=== PATIENT | female | born 1985 | race Caucasian/White ===

== ENCOUNTER 2017-09-25 15:27 | Emergency (ER) | payer BC ==
--- NOTE | 2017-09-25 15:49 | EDM.PDOC ---
ED HPI GENERAL MEDICAL PROBLEM - General Chief Complaint: Upper Extremity Injury/Pain Stated Complaint: LEFT ARM INJURY Time Seen by Provider: 09/25/17 15:49 Source of Information: Reports: Patient History Limitations: Reports: No Limitations - History of Present Illness INITIAL COMMENTS - FREE TEXT/NARRATIVE: Kimberly is a pleasant 32yo female, presents ambulatory with to ED with complaints of left elbow pain s/p fall early this morning. She was out celebrating her birthday, was drinking alcohol and intoxicated and fell down, onto her left elbow. She is unsure of exactly how she landed. Today she has swelling and pain to her elbow, movement of the elbow causes pain. No numbness/ tingling distally. No other associated injuries from the fall. She is otherwise healthy, trying to conceive with LMP being 2-3 weeks ago or so. Onset: Sudden Duration: Day(s): (1) Location: Reports: Upper Extremity, Left Quality: Reports: Throbbing Severity: Moderate Improves with: Reports: None Worsens with: Reports: None Context: Reports: Trauma (fall onto left arm/elbow) Associated Symptoms: Reports: No Other Symptoms Left Elbow Pain Score (Numeric/FACES): 8 - Related Data Allergies Allergy/AdvReac Type Severity Reaction Status Date / Time No Known Allergies Allergy Verified 05/11/17 11:35 Home Meds: Home Meds Sertraline HCl [Zoloft] 50 mg PO DAILY 09/25/17 [History] metFORMIN [Glucophage XR] 500 mg PO BID 09/25/17 [History] Past Medical History Gastrointestinal History: Reports: Other (See Below) Other Gastrointestinal History: anal fissure repair 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 Psychiatric History: Reports: Anxiety Social & Family History - Tobacco Use Smoking Status *Q: Current Every Day Smoker Years of Tobacco use: 10 Packs/Tins Daily: 0.3 - Caffeine Use Caffeine Use: Reports: Coffee - Recreational Drug Use Recreational Drug Use: No Review of Systems - Review of Systems Review Of Systems: See Below Constitutional: Reports: No Symptoms Eyes: Reports: No Symptoms Ears: Reports: No Symptoms Nose: Reports: No Symptoms Mouth/Throat: Reports: No Symptoms Respiratory: Reports: No Symptoms Cardiovascular: Reports: No Symptoms GI/Abdominal: Reports: No Symptoms Genitourinary: Reports: No Symptoms Musculoskeletal: Reports: Arm Pain (left elbow, see HPI) Skin: Reports: No Symptoms Neurological: Reports: No Symptoms ED EXAM, GENERAL - Physical Exam Exam: See Below Exam Limited By: No Limitations General Appearance: Alert, WD/WN, No Apparent Distress Eye Exam: Bilateral Eye: EOMI, PERRL Ears: Normal External Exam, Hearing Grossly Normal Nose: Normal Inspection Throat/Mouth: Normal Inspection, Normal Lips, Normal Teeth, Normal Gums, Normal Voice, No Airway Compromise Head: Atraumatic, Normocephalic Neck: Normal Inspection, Supple Respiratory/Chest: No Respiratory Distress, Lungs Clear, Normal Breath Sounds Cardiovascular: Normal Peripheral Pulses, Regular Rate, Rhythm, No Edema, No Murmur Peripheral Pulses: 2+: Radial (L), Radial (R) Extremities: Joint Swelling (left elbow laterally is with swelling, early ecchymosis is forming over lateral aspect/radial head area. There is point tenderness near/around radial head and lateral condyle, medial condyle is with some tenderness but nothing like lateral aspect. Any amt of motion to elbow causes pain, she is unable to pronate/supinate due to pain. Distally CMS is intact. Shoulder and wrist/hand exam are WNL and without abnormality.) Neurological: Alert, Oriented, CN II-XII Intact, Normal Cognition Psychiatric: Normal Affect, Normal Mood Skin Exam: Warm, Dry, Intact Course - Vital Signs Last Recorded V/S: Last Vital Signs Temp 98.5 F 09/25/17 15:39 Pulse 95 09/25/17 15:39 Resp 20 09/25/17 15:39 BP 140/88 09/25/17 15:39 Pulse Ox 95 09/25/17 15:39 - Orders/Labs/Meds Orders: Active Orders 24 hr Category Date Time Status Elbow Min 3V Lt [CR] Stat Exams 09/25/17 15:48 Taken HCG QUALITATIVE,URINE [URCHEM] Stat Lab 09/25/17 16:10 Ordered Labs: Laboratory Tests 09/25/17 Range/Units 16:10 Urine HCG, Qual Negative (NEGATIVE) - Radiology Interpretation Free Text/Narrative:: HCG negative, proceed with xray. Xray of left elbow: without evidence of acute fracture by my review. Will await Radiologist final interp. Departure - Departure Time of Disposition: 17:09 Disposition: Home, Self-Care 01 Condition: Good Clinical Impression: Contusion of elbow, left Qualifiers: Encounter type: initial encounter Qualified Code(s): S50.02XA - Contusion of left elbow, initial encounter - Discharge Information Instructions: Elbow Contusion, [id number] Referrals: PCP,None [Primary Care Provider] - Forms: ED Department Discharge Additional Instructions: Urine test was negative today. Xray of left elbow is without findings of acute or obvious fracture. Will await Radiologist final reading and if findings differ will notify you. Recommend ibuprofen 600mg 3 times daily with food, can wear arm sling if needed for comfort however do want you to try gentle range of motion at least a few times daily. If not improving by 5-7 days recommend follow up with Primary Care for repeat xray to assure no further problems or fractures that may not have been visible on initial xray. Ice to elbow 3-4 times daily for 20 minute sessions. Return to ER if needed or for other ?'s or concerns. - My Orders Last 24 Hours: My Active Orders 09/25/17 15:48 Elbow Min 3V Lt [CR] Stat 09/25/17 16:10 HCG QUALITATIVE,URINE [URCHEM] Stat - Assessment/Plan Last 24 Hours: My Active Orders 09/25/17 15:48 Elbow Min 3V Lt [CR] Stat 09/25/17 16:10 HCG QUALITATIVE,URINE [URCHEM] Stat
[2017-09-25] MEDS ORDERED: Ketorolac 30 MG/ML SDV IM ONE (17:13)
--- NOTE | 2017-09-26 07:48 | CR ---
Left elbow: Four views of the left elbow were obtained. Comparison: No prior elbow study. Joint spaces are preserved. No joint effusion is seen. No fracture or other bony abnormality is seen. Impression: 1. No abnormality is appreciated on left elbow study. Diagnostic code #1
== END 2017-09-25 17:45 | disposition home or self-care (01) ==
LOC: JD.ED 15:27
DX: S50.02XA Contusion of left elbow, initial encounter (principal); F17.210 Nicotine dependence, cigarettes, uncomplicated; W19.XXXA Unspecified fall, initial encounter
CPT/HCPCS: 73080; 81025; 96372; 99284; J1885; 99283

== ENCOUNTER 2020-09-23 16:58 | Inpatient (IN) | payer BC ==
--- NOTE | 2020-09-23 19:55 | PCM.LDHP ---
L&D History of Present Illness - General Date of Service: 09/23/20 Admit Problem/Dx: Patient Status Order with Admit Dx/Problem 09/23/20 17:12 Patient Status [ADT] Routine Admission Diagnosis/Problem Admission Diagnosis/Problem Gestational hypertension Source of Information: Patient History Limitations: Reports: No Limitations - History of Present Illness Introduction:: Kimberly Brown (Jackie) is a 34-year-old -0-1-2 female at 37 weeks 3 days (DIANN 10/11/2020) by a 9-week ultrasound who presents for monitoring of blood pressures after she had elevated blood pressures in the office on 09/23 as well as 09/18. Her blood pressures in the office today were 146/76 and 150/80. She reports that she has had a mild headache throughout the evening and into today. It is not very strong and she has not taken anything for this headache. She denies any vision changes or epigastric pain. She has started to notice some contractions while she has been on labor and delivery. She reports that they are very irregular every 10 to 15 minutes and will last for about 30 seconds. She reports good movement. She denies any leaking of fluid or vaginal bleeding. Timing/Duration: Reports: gradual onset (Of elevated blood pressures in the clinic for the last week or so) Severity: Mild Improves with: Reports: None Worsens with: Reports: None Associated Symptoms: Denies: vaginal bleeding, vaginal discharge, vaginal fluid Present Illness Comments:: Kimberly Brown (Jackie) is a 34-year-old -0-1-2 female at 37 weeks 3 days (DIANN 10/11/2020) by a 9-week ultrasound who presents for monitoring of blood pressures and continues to have elevated blood pressures and is undergoing induction of labor due to these blood pressures. She has had an uncomplicated per her report. There were no significant concerns per the patient. Patient has been on Metformin for control of her polycystic ovarian syndrome. She started on Zoloft 50 mg daily at around 15 weeks gestational age due to increased amounts of anxiety and depression. She received Tdap vaccine on 07/22/2020. Her care has been with Dr. Bright and is complicated by: * Gestational hypertension with elevated blood pressures it 1st developed at 36 weeks and continued into 37 weeks gestational age. 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 G1: 10/01/2008, , 6 pounds, male , epidural for anesthesia G2: 08/10/2011, , 7 pounds, male infant, epidural for anesthesia G3: TAB at uncertain date G4: Current labs Blood type: O- Antibody screen: Negative First trimester hematocrit/hemoglobin: 40.8%/14.0 on 03/11/2020 Platelets: 250 on 03/11/2020 Rubella status: Equivocal Hepatitis B surface antigen: Negative RPR: Negative Hepatitis C: Negative HIV: Negative Gonorrhea: Negative Chlamydia: Negative One hour glucose tolerance test: 75 Second trimester hemoglobin: 12.4 on 07/22/2020 Platelets: 250 on 07/22/2020 GBS status: Negative - Related Data Allergies/Adverse Reactions: Allergies Allergy/AdvReac Type Severity Reaction Status Date / Time No Known Allergies Allergy Verified 09/23/20 17:11 Home Medications: Home Meds Sertraline HCl [Zoloft] 50 mg PO DAILY 09/25/17 [History] metFORMIN [Glucophage XR] 500 mg PO BID 09/25/17 [History] Pnv No.95/Ferrous Fum/Folic AC [ Tablet] 1 each PO DAILY 09/23/20 [History] Past Medical History Gastrointestinal History: Reports: Other (See Below) Other Gastrointestinal History: anal fissure repair 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 : 4 Para: 2 Psychiatric History: Reports: Anxiety, Depression - Past Surgical History Female Surgical History: Reports: Other (See Below) (colposcopy x 2) Social & Family History - Tobacco Use Tobacco Use Status *Q: Former Tobacco User Tobacco Use Within Last Twelve Months: No - Tobacco Core Measures Tobacco Use/Smoking Within Last 30 Days: No Smokeless Tobacco Use in Last 30 Days: No - Caffeine Use Caffeine Use: Reports: Coffee - Alcohol Use Alcohol Use History: No - Recreational Drug Use Recreational Drug Use: No Drug Use in Last 12 Months: No - Living Situation & Occupation Living situation: Reports: , with Spouse, with Family H&P Review of Systems - Review of Systems: Review Of Systems: See Below General: Denies: Fever, Chills, Malaise, Weakness, Fatigue HEENT: Reports: Headaches (for the last day). Denies: Eye Pain, Rhinitis, Post Nasal Drip, Sinus Congestion, Sore Throat, Visual Changes Pulmonary: Denies: Shortness of Breath, Wheezing, Pleuritic Chest Pain, Cough Cardiovascular: Denies: Chest Pain, Palpitations, Dyspnea on Exertion, Orthopnea Gastrointestinal: Denies: Abdominal Pain, Constipation, Diarrhea, Nausea, Vomiting Genitourinary: Denies: Dysuria, Frequency, Burning, Pain, Urgency Musculoskeletal: Reports: Back Pain (and hip pain of ) Skin: Denies: Rash, Lesions Psychiatric: Denies: Depression, Anxiety L&D Exam - Exam Exam: See Below - Vital Signs Vital Signs: Last Vital Signs Temp 36.8 C 09/23/20 17:20 Pulse 67 09/23/20 17:20 Resp 16 09/23/20 17:20 BP 149/73 H 09/23/20 17:20 Pulse Ox 99 09/23/20 17:20 Weight: 112.037 kg - OB Specific Contraction Duration (sec): 30-45 Contraction Frequency (min): 3-8 Contraction Intensity: Mild Movement: Active Heart Tones: Present Heart Tones per Min: 120 (+15 x 15 accelerations, no decelerations) Heart Rate (FHR) Variability: Moderate (6-25 bmp) Presentation: Vertex Estimated Weight: 7-7.5 pounds by Jesus - Ovalle Score Ovalle Score Cervix Position: Anterior Ovalle Score Consistency: Soft Ovalle Score Effacement: 31-50% (40%) Ovalle Score Dilation: 1-2 cm (1cm) Ovalle Score 's Station: -3 Ovalle Score Total: 6 - Exam General: Alert, Oriented HEENT: Conjunctiva Clear, EOMI Neck: Supple, Trachea Midline Lungs: Clear to Auscultation, Normal Respiratory Effort Cardiovascular: Regular Rate, Regular Rhythm GI/Abdominal Exam: Soft, Non-Tender, No Distention, Other (Gravid). No: Guarding, Rigid, Rebound Genitourinary: Normal external exam Skin: Warm, Dry, Intact Psychiatric: Alert, Normal Affect, Normal Mood - Patient Data Lab Results Last 24 hrs: Laboratory Results - last 24 hr 09/23/20 09/23/20 09/23/20 Range/Units 18:13 18:13 18:28 WBC 9.71 (3.98-10.04) K/mm3 RBC 3.84 L (3.98-5.22) M/mm3 Hgb 11.9 (11.2-15.7) gm/dl Hct 34.9 (34.1-44.9) % MCV 90.9 (79.4-94.8) fl MCH 31.0 (25.6-32.2) pg MCHC 34.1 (32.2-35.5) g/dl RDW Std Deviation 46.6 H (36.4-46.3) fL Plt Count 245 (182-369) K/mm3 MPV 10.5 (9.4-12.3) fl Neut % (Auto) 67.9 (34.0-71.1) % Lymph % (Auto) 23.1 (19.3-51.7) % King % (Auto) 7.9 (4.7-12.5) % Eos % (Auto) 0.8 (0.7-5.8) Baso % (Auto) 0.1 (0.1-1.2) % Neut # (Auto) 6.59 H (1.56-6.13) K/mm3 Lymph # (Auto) 2.24 (1.18-3.74) K/mm3 King # (Auto) 0.77 H (0.24-0.36) K/mm3 Eos # (Auto) 0.08 (0.04-0.36) K/mm3 Baso # (Auto) 0.01 (0.01-0.08) K/mm3 Sodium 135 L (136-145) mEq/L Potassium 3.7 (3.5-5.1) mEq/L Chloride 103 (98-107) mEq/L Carbon Dioxide 20 L (21-32) mEq/L Anion Gap 15.7 H (5-15) BUN 15 (7-18) mg/dL Creatinine 0.8 (0.55-1.02) mg/dL Est Cr Clr Drug Dosing 87.48 mL/min Estimated GFR (MDRD) > 60 (>60) mL/min BUN/Creatinine Ratio 18.8 H (14-18) Glucose 80 (70-99) mg/dL Calcium 8.8 (8.5-10.1) mg/dL Total Bilirubin 0.4 (0.2-1.0) mg/dL AST 31 (15-37) U/L ALT 56 (14-59) U/L Alkaline Phosphatase 105 (46-116) U/L Lactate Dehydrogenase 186 (81-234) U/L Total Protein 6.2 L (6.4-8.2) g/dl Albumin 2.6 L (3.4-5.0) g/dl Globulin 3.6 gm/dL Albumin/Globulin Ratio 0.7 L (1-2) Ur Random Creatinine 147.6 H (30.0-125.0) mg/dL U Random Total Protein 12.0 H (0.0-11.8) mg/dL Protein/Creatinin Ratio 81.3 (0-149) mg/g Result Diagrams: 09/23/20 18:13 09/23/20 18:13 - Problem List (1) 37 weeks gestation of SNOMED Code(s): 33838680 ICD Code: Z3A.37 - 37 WEEKS GESTATION OF Status: Acute Current Visit: Yes (2) Gestational hypertension SNOMED Code(s): 911644120 ICD Code: O13.9 - GESTATIONAL HTN W/O SIGNIFICANT PROTEINURIA, UNSP TRIMESTER Status: Acute Current Visit: Yes (3) Advanced maternal age in multigravida SNOMED Code(s): 105773128 ICD Code: O09.529 - SUPERVISION OF ELDERLY MULTIGRAVIDA, UNSPECIFIED TRIMESTER Status: Acute Current Visit: Yes (4) Rubella non-immune status, antepartum SNOMED Code(s): 445119510 ICD Code: O99.891 - OTH DISEASES AND CONDITIONS COMPLICATING ; Z28.3 - UNDERIMMUNIZATION STATUS Status: Acute Current Visit: Yes (5) Rh negative status during SNOMED Code(s): 095618102 ICD Code: O26.899 - OTH RELATED CONDITIONS, UNSPECIFIED TRIMESTER; Z67.91 - UNSPECIFIED BLOOD TYPE, RH NEGATIVE Status: Acute Current Visit: Yes (6) Anxiety SNOMED Code(s): 27349059 ICD Code: F41.9 - ANXIETY DISORDER, UNSPECIFIED Status: Acute Current Visit: Yes (7) Depression SNOMED Code(s): 74222086 ICD Code: F32.9 - MAJOR DEPRESSIVE DISORDER, SINGLE EPISODE, UNSPECIFIED Status: Acute Current Visit: Yes (8) Depression affecting SNOMED Code(s): 63905138550931 ICD Code: O99.340 - OTH MENTAL DISORDERS COMPLICATING , UNSP TRIMESTER; F32.9 - MAJOR DEPRESSIVE DISORDER, SINGLE EPISODE, UNSPECIFIED Status: Acute Current Visit: Yes (9) Polycystic ovarian syndrome SNOMED Code(s): 306090169 ICD Code: E28.2 - POLYCYSTIC OVARIAN SYNDROME Status: Acute Current Visit: Yes Problem List Initiated/Reviewed/Updated: Yes Orders Last 24hrs: Active Orders 24 hr Category Date Time Status Patient Status Manage Transfer [TRANSFER] Routine ADT 09/23/20 19:40 Ordered Patient Status [ADT] Routine ADT 09/23/20 17:12 Active Non Stress Test [RC] PER UNIT ROUTINE Care 09/23/20 17:12 Active Vital Signs [RC] PER UNIT ROUTINE Care 09/23/20 17:12 Active Regular Diet [DIET] Diet 09/23/20 Dinner Active Resuscitation Status Routine Resus Stat 09/23/20 17:12 Ordered Assessment/Plan Comment:: Ronna Brown is a 34-year-old -0-1-2 female at 37 weeks 4 days who presents with gestational hypertension and is undergoing induction of labor due to the gestational hypertension Refer to observation for elective induction of labor Start Pitocin for induction of labor Continuous monitoring Place IV and have Lactated Ringer's at 125 ml/hr May have small amounts of regular diet Activity as tolerated May have epidural as desired Plans to breast-feed after delivery Continue Zoloft 50 mg daily to control her anxiety and depression Continue Metformin 500 mg twice daily for polycystic ovarian syndrome Anticipate vaginal delivery unless otherwise indicated Vivek Olvera MD 8:02 PM 09/23/2020
[2020-09-23] MEDS ORDERED: Nalbuphine 10 MG/1 ML Vial IVPUSH PRN (20:55)
[2020-09-23] MEDS ORDERED: Sodium Chloride 0.9% 10 ML Syringe FLUSH PRN (20:55)
[2020-09-23] MEDS ORDERED: Oxytocin/Lactated Ringers 10 UNIT/1,000 ML BAG IV SCH ×2 (20:55)
[2020-09-23] MEDS ORDERED: Sertraline 50 MG Tab PO SCH (21:00)
[2020-09-23] MEDS: Lactated Ringers 1,000 ML IV SCH (21:09)
[2020-09-24] MEDS ORDERED: Bupivacaine 0.25% 10 ML SDV ONE
[2020-09-24] MEDS ORDERED: fentaNYL 100 MCG/2 ML SDV EPIDUR PRN (02:04)
[2020-09-24] MEDS ORDERED: diphenhydrAMINE 50 MG/ML SDV IVPUSH PRN (02:04)
[2020-09-24] MEDS: Lactated Ringers 1,000 ML IV SCH ×4 (02:22→05:06)
[2020-09-24] MEDS: Bupivacaine/fentaNYL/NS 100 ML Bag EPIDUR PRN ×2 (02:27→11:51)
[2020-09-24] MEDS: ePHEDrine 50 MG/ML SDV IVPUSH PRN ×2 (02:51→02:56)
--- NOTE | 2020-09-24 03:03 | PCM.PREANE ---
Preanesthetic Assessment - Procedure Proposed Procedure: Labor Epidural - Anesthesia/Transfusion/Family Hx Anesthesia History: Prior Anesthesia Without Reaction Family History of Anesthesia Reaction: No Transfusion History: No Prior Transfusion(s) - Review of Systems General: No Symptoms Pulmonary: No Symptoms Cardiovascular: Other (Gestational Hypertension) Gastrointestinal: Abdominal Pain (Contractions), Other (GERD) Neurological: No Symptoms Other: Reports: None (BMI 41), Depression, Anxiety - Physical Assessment Vital Signs: Last Vital Signs Temp 36.8 C 09/23/20 17:20 Pulse 67 09/23/20 17:20 Resp 16 09/23/20 17:20 BP 149/73 H 09/23/20 17:20 Pulse Ox 99 09/23/20 17:20 Height: 1.65 m Weight: 112.037 kg ASA Class: 3 Mental Status: Alert & Oriented x3 Airway Class: Mallampati = 2 Dentition: Reports: Normal Dentition Thyro-Mental Finger Breadths: 3 Mouth Opening Finger Breadths: 3 ROM/Head Extension: Full Lungs: Clear to Auscultation, Normal Respiratory Effort Cardiovascular: Regular Rate, Regular Rhythm - Lab Values: Laboratory Last Values WBC 9.71 K/mm3 (3.98-10.04) 09/23/20 18:13 RBC 3.84 M/mm3 (3.98-5.22) L 09/23/20 18:13 Hgb 11.9 gm/dl (11.2-15.7) 09/23/20 18:13 Hct 34.9 % (34.1-44.9) 09/23/20 18:13 MCV 90.9 fl (79.4-94.8) 09/23/20 18:13 MCH 31.0 pg (25.6-32.2) 09/23/20 18:13 MCHC 34.1 g/dl (32.2-35.5) 09/23/20 18:13 RDW Std Deviation 46.6 fL (36.4-46.3) H 09/23/20 18:13 Plt Count 245 K/mm3 (182-369) 09/23/20 18:13 MPV 10.5 fl (9.4-12.3) 09/23/20 18:13 Neut % (Auto) 67.9 % (34.0-71.1) 09/23/20 18:13 Lymph % (Auto) 23.1 % (19.3-51.7) 09/23/20 18:13 [place] % (Auto) 7.9 % (4.7-12.5) 09/23/20 18:13 Eos % (Auto) 0.8 (0.7-5.8) 09/23/20 18:13 Baso % (Auto) 0.1 % (0.1-1.2) 09/23/20 18:13 Neut # (Auto) 6.59 K/mm3 (1.56-6.13) H 09/23/20 18:13 Lymph # (Auto) 2.24 K/mm3 (1.18-3.74) 09/23/20 18:13 [place] # (Auto) 0.77 K/mm3 (0.24-0.36) H 09/23/20 18:13 Eos # (Auto) 0.08 K/mm3 (0.04-0.36) 09/23/20 18:13 Baso # (Auto) 0.01 K/mm3 (0.01-0.08) 09/23/20 18:13 Sodium 135 mEq/L (136-145) L 09/23/20 18:13 Potassium 3.7 mEq/L (3.5-5.1) 09/23/20 18:13 Chloride 103 mEq/L (98-107) 09/23/20 18:13 Carbon Dioxide 20 mEq/L (21-32) L 09/23/20 18:13 Anion Gap 15.7 (5-15) H 09/23/20 18:13 BUN 15 mg/dL (7-18) 09/23/20 18:13 Creatinine 0.8 mg/dL (0.55-1.02) 09/23/20 18:13 Est Cr Clr Drug Dosing 87.48 mL/min 09/23/20 18:13 Estimated GFR (MDRD) > 60 mL/min (>60) 09/23/20 18:13 BUN/Creatinine Ratio 18.8 (14-18) H 09/23/20 18:13 Glucose 80 mg/dL (70-99) 09/23/20 18:13 Calcium 8.8 mg/dL (8.5-10.1) 09/23/20 18:13 Total Bilirubin 0.4 mg/dL (0.2-1.0) 09/23/20 18:13 AST 31 U/L (15-37) 09/23/20 18:13 ALT 56 U/L (14-59) 09/23/20 18:13 Alkaline Phosphatase 105 U/L (46-116) 09/23/20 18:13 Lactate Dehydrogenase 186 U/L (81-234) 09/23/20 18:13 Total Protein 6.2 g/dl (6.4-8.2) L 09/23/20 18:13 Albumin 2.6 g/dl (3.4-5.0) L 09/23/20 18:13 Globulin 3.6 gm/dL 09/23/20 18:13 Albumin/Globulin Ratio 0.7 (1-2) L 09/23/20 18:13 Ur Random Creatinine 147.6 mg/dL (30.0-125.0) H 09/23/20 18:28 U Random Total Protein 12.0 mg/dL (0.0-11.8) H 09/23/20 18:28 Protein/Creatinin Ratio 81.3 mg/g (0-149) 09/23/20 18:28 SARS-CoV-2 RNA (JOSELYN) Negative (NEGATIVE) 09/23/20 20:08 - Allergies Allergies/Adverse Reactions: Allergies Allergy/AdvReac Type Severity Reaction Status Date / Time No Known Allergies Allergy Verified 09/23/20 17:11 - Acknowledgements Anesthesia Type Planned: Epidural Pt an Appropriate Candidate for the Planned Anesthesia: Yes Alternatives and Risks of Anesthesia Discussed w Pt/Guardian: Yes Pt/Guardian Understands and Agrees with Anesthesia Plan: Yes PreAnesthesia Questionnaire Gastrointestinal History: Reports: Other (See Below) Other Gastrointestinal History: anal fissure repair 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, , Spontaneous Psychiatric History: Reports: Anxiety, Depression - Past Surgical History Female Surgical History: Reports: Other (See Below) - SUBSTANCE USE Tobacco Use Status *Q: Former Tobacco User Tobacco Use Within Last Twelve Months: Cigarettes Recreational Drug Use History: No - HOME MEDS Home Medications: Home Meds Sertraline HCl [Zoloft] 50 mg PO DAILY 09/25/17 [History] metFORMIN [Glucophage XR] 500 mg PO BID 09/25/17 [History] Pnv No.95/Ferrous Fum/Folic AC [ Tablet] 1 each PO DAILY 09/23/20 [History] - CURRENT (IN HOUSE) MEDS Current Meds: Current Medications Diphenhydramine HCl (Diphenhydramine 50 Mg/Ml Sdv) 25 mg IVPUSH Q6H PRN PRN Reason: pruritis Ephedrine Sulfate (Ephedrine 50 Mg/Ml Sdv) 5 mg IVPUSH ASDIRECTED PRN PRN Reason: Hypotension Last Admin: 09/24/20 02:56 Dose: 5 mg Documented by: Fentanyl (Fentanyl 100 Mcg/2 Ml Sdv) 100 mcg EPIDUR Q3H PRN PRN Reason: Pain Last Admin: 09/24/20 02:27 Dose: 100 mcg Documented by: Fentanyl/Bupivacaine HCl (Bupivacaine/Fentanyl/Ns 100 Ml Bag) 100 ml EPIDUR ASDIRECTED PRN PRN Reason: Pain Last Admin: 09/24/20 02:27 Dose: 100 ml Documented by: Lactated Ringer's (Ringers, Lactated) 1,000 mls @ 100 mls/hr IV ASDIRECTED STELLA Last Admin: 09/24/20 02:23 Dose: 100 mls/hr Documented by: Oxytocin/Lactated Ringer's (Pitocin In Lr 10 Units/1,000 Ml) 10 unit in 1,000 mls @ 12 mls/hr IV TITRATE STELLA; Protocol Last Titration: 09/24/20 01:15 Dose: 11 munits/min, 66 mls/hr Documented by: Oxytocin/Lactated Ringer's (Pitocin In Lr 10 Units/1,000 Ml) 10 unit in 1,000 mls @ 100 mls/hr IV .CONTINUOUS STELLA Metformin HCl (Metformin 500 Mg Tab) 500 mg PO BIDMEALS STELLA Nalbuphine HCl (Nalbuphine 10 Mg/1 Ml Vial) 10 mg IVPUSH Q2H PRN PRN Reason: Pain Sertraline HCl (Sertraline 50 Mg Tab) 50 mg PO BEDTIME STELLA Last Admin: 09/23/20 21:09 Dose: 50 mg Documented by: Sodium Chloride (Sodium Chloride 0.9% 10 Ml Syringe) 10 ml FLUSH ASDIRECTED PRN PRN Reason: Keep Vein Open
[2020-09-24] MEDS ORDERED: metFORMIN 500 MG Tab PO SCH (07:00)
[2020-09-24] MEDS ORDERED: Oxytocin/Lactated Ringers 20 UNIT/1,000 ML BAG IV SCH (07:30)
--- NOTE | 2020-09-24 09:50 | PCM.PNLD ---
Labor Progress Note - VS & Meds Vital Signs: Last Vital Signs Temp 36.8 C 09/23/20 17:20 Pulse 67 09/23/20 17:20 Resp 16 09/23/20 17:20 BP 149/73 H 09/23/20 17:20 Pulse Ox 99 09/23/20 17:20 Active Medications: Current Medications Diphenhydramine HCl (Diphenhydramine 50 Mg/Ml Sdv) 25 mg IVPUSH Q6H PRN PRN Reason: pruritis Ephedrine Sulfate (Ephedrine 50 Mg/Ml Sdv) 5 mg IVPUSH ASDIRECTED PRN PRN Reason: Hypotension Last Admin: 09/24/20 02:56 Dose: 5 mg Documented by: Fentanyl (Fentanyl 100 Mcg/2 Ml Sdv) 100 mcg EPIDUR Q3H PRN PRN Reason: Pain Last Admin: 09/24/20 02:27 Dose: 100 mcg Documented by: Fentanyl/Bupivacaine HCl (Bupivacaine/Fentanyl/Ns 100 Ml Bag) 100 ml EPIDUR ASDIRECTED PRN PRN Reason: Pain Last Admin: 09/24/20 02:27 Dose: 100 ml Documented by: Lactated Ringer's (Ringers, Lactated) 1,000 mls @ 100 mls/hr IV ASDIRECTED STELLA Last Admin: 09/24/20 05:06 Dose: 100 mls/hr Documented by: Oxytocin/Lactated Ringer's (Pitocin In Lr 10 Units/1,000 Ml) 10 unit in 1,000 mls @ 12 mls/hr IV TITRATE STELLA; Protocol Last Titration: 09/24/20 07:15 Dose: 20 munits/min, 120 mls/hr Documented by: Oxytocin/Lactated Ringer's (Pitocin In Lr 10 Units/1,000 Ml) 10 unit in 1,000 mls @ 100 mls/hr IV .CONTINUOUS STELLA Oxytocin/Lactated Ringer's (Pitocin In Lr 20 Units/1,000 Ml) 20 unit in 1,000 mls @ 60 mls/hr IV TITRATE STELLA; Protocol Last Admin: 09/24/20 09:26 Dose: 60 mls/hr Documented by: Metformin HCl (Metformin 500 Mg Tab) 500 mg PO BIDMEALS STELLA Last Admin: 09/24/20 07:32 Dose: 500 mg Documented by: Nalbuphine HCl (Nalbuphine 10 Mg/1 Ml Vial) 10 mg IVPUSH Q2H PRN PRN Reason: Pain Sertraline HCl (Sertraline 50 Mg Tab) 50 mg PO BEDTIME STELLA Last Admin: 09/23/20 21:09 Dose: 50 mg Documented by: Sodium Chloride (Sodium Chloride 0.9% 10 Ml Syringe) 10 ml FLUSH ASDIRECTED PRN PRN Reason: Keep Vein Open - Uterine Contractions Contraction Frequency (min): 3-8 Contraction Duration (sec): 30-45 Contraction Intensity: Mild Uterine Resting Tone: Soft - Monitoring Heart Rate (FHR) Variability: Moderate (6-25 bmp) Accelerations: Present, 15x15 Decelerations: None Strip Review: Category I - Vaginal Exam Dilation (cm): 2 Effacement (Percent): 60 Station: -2 Cervical Position: Midposition - Labor Progress (Free Text) Labor Progress: Doing well. IUPC placed. Blood pressures mild range to normal.
--- NOTE | 2020-09-24 16:37 | PCM.SN.2 ---
- Free Text/Narrative Note: Stage I - Patient presented for induction of labor for elevated blood pressures. Pitocin induction. AROM clear fluid. IUPC placed. Progressed to complete with overall reassuring heart tones. Stage II - of viable male, weight 2890, 8/9 APGARS at 1616. Head delivered in controlled manner over intact perineum. Body and shoulders atraumatically. To maternal abdomen. Positive cry. Cord clamped and cut. Cord blood collected. Stage III - of intact placenta. 3vc. No laceration. EBL 150.
[2020-09-24] MEDS ORDERED: Witch Hazel Medicated Pads 40/Jar TOP PRN (17:30)
[2020-09-24] MEDS ORDERED: Benzocaine/Menthol 20%-0.5% Spray 56 GM Canister TOP PRN (17:30)
[2020-09-24] MEDS: Ibuprofen 600 MG Tab PO PRN (19:00)
[2020-09-25] MEDS: Ibuprofen 600 MG Tab PO PRN (00:02)
--- NOTE | 2020-09-25 08:14 | PCM.DCSUM1 ---
Discharge Summary - Hospital Course Diagnosis: Stroke: No - Discharge Data Discharge Date: 09/25/20 Discharge Disposition: Home, Self-Care 01 Condition: Good - Referral to Home Health Primary Care Physician: Christina Bright MD - Patient Summary/Data Hospital Course: Stage I - Patient presented for induction of labor for elevated blood pressures. Pitocin induction. AROM clear fluid. IUPC placed. Progressed to complete with overall reassuring heart tones. Stage II - of viable male, weight 2890, 8/9 APGARS at 1616. Head delivered in controlled manner over intact perineum. Body and shoulders atraumatically. To maternal abdomen. Positive cry. Cord clamped and cut. Cord blood collected. Stage III - of intact placenta. 3vc. No laceration. EBL 150. - Patient Instructions Diet: Usual Diet as Tolerated Activity: No Strenuous Activities Driving: May Drive Today Showering/Bathing: May Shower Wound/Incision Care: Keep Operative Site/Wound Site Clean and Dry Notify Provider of: Fever, Increased Pain, Swelling and Redness, Drainage, Nausea and/or Vomiting - Discharge Plan *PRESCRIPTION DRUG MONITORING PROGRAM REVIEWED*: No *COPY OF PRESCRIPTION DRUG MONITORING REPORT IN PATIENT DEBBIE: No Home Medications: Home Meds Sertraline HCl [Zoloft] 50 mg PO DAILY 09/25/17 [History] metFORMIN [Glucophage XR] 500 mg PO BID 09/25/17 [History] Pnv No.95/Ferrous Fum/Folic AC [ Tablet] 1 each PO DAILY 09/23/20 [History] Referrals: Christina Bright MD [Primary Care Provider] - (2 weeks) - Discharge Summary/Plan Comment DC Time >30 min.: No - General Info Date of Service: 09/25/20 Functional Status: Reports: Pain Controlled - Review of Systems General: Reports: No Symptoms HEENT: Reports: No Symptoms Pulmonary: Reports: No Symptoms Cardiovascular: Reports: No Symptoms Gastrointestinal: Reports: No Symptoms Genitourinary: Reports: No Symptoms Musculoskeletal: Reports: No Symptoms Skin: Reports: No Symptoms Neurological: Reports: No Symptoms Psychiatric: Reports: No Symptoms - Patient Data Vitals - Most Recent: Last Vital Signs Temp 36.7 C 09/25/20 03:55 Pulse 57 L 09/25/20 03:55 Resp 17 09/25/20 03:55 BP 115/61 09/25/20 03:55 Pulse Ox 97 09/25/20 03:55 Weight - Most Recent: 112.037 kg I&O - Last 24 hours: Intake & Output 09/24/20 09/25/20 09/25/20 22:59 06:59 14:59 Intake Total 1999 Output Total 1612 Balance 388 Lab Results - Last 24 hrs: Laboratory Results - last 24 hr 09/23/20 Range/Units 18:13 RPR Non-reactive (NONREACTIVE) Med Orders - Current: Current Medications Benzocaine/Menthol (Benzocaine/Menthol 20%-0.5% [place] 56 Gm Canister) 0 gm TOP ASDIRECTED PRN PRN Reason: Perineal Comfort Measure Last Admin: 09/24/20 19:00 Dose: 1 can Documented by: Ibuprofen (Ibuprofen 600 Mg Tab) 600 mg PO Q6H PRN PRN Reason: Mild pain or fever Last Admin: 09/25/20 00:02 Dose: 600 mg Documented by: Heladio Fitzgerald (Heladio Fitzgerald Medicated Pads 40/Jar) 1 pad TOP ASDIRECTED PRN PRN Reason: Perineal Comfort Measure Last Admin: 09/24/20 19:00 Dose: 1 tub Documented by: Discontinued Medications Diphenhydramine HCl (Diphenhydramine 50 Mg/Ml Sdv) 25 mg IVPUSH Q6H PRN PRN Reason: pruritis Ephedrine Sulfate (Ephedrine 50 Mg/Ml Sdv) 5 mg IVPUSH ASDIRECTED PRN PRN Reason: Hypotension Last Admin: 09/24/20 02:56 Dose: 5 mg Documented by: Fentanyl (Fentanyl 100 Mcg/2 Ml Sdv) 100 mcg EPIDUR Q3H PRN PRN Reason: Pain Last Admin: 09/24/20 02:27 Dose: 100 mcg Documented by: Fentanyl/Bupivacaine HCl (Bupivacaine/Fentanyl/Ns 100 Ml Bag) 100 ml EPIDUR ASDIRECTED PRN PRN Reason: Pain Last Admin: 09/24/20 11:51 Dose: 100 ml Documented by: Lactated Ringer's (Ringers, Lactated) 1,000 mls @ 100 mls/hr IV ASDIRECTED STELLA Last Admin: 09/24/20 05:06 Dose: 100 mls/hr Documented by: Oxytocin/Lactated Ringer's (Pitocin In Lr 10 Units/1,000 Ml) 10 unit in 1,000 mls @ 12 mls/hr IV TITRATE STELLA; Protocol Last Titration: 09/24/20 07:15 Dose: 20 munits/min, 120 mls/hr Documented by: Oxytocin/Lactated Ringer's (Pitocin In Lr 10 Units/1,000 Ml) 10 unit in 1,000 mls @ 100 mls/hr IV .CONTINUOUS STELLA Oxytocin/Lactated Ringer's (Pitocin In Lr 20 Units/1,000 Ml) 20 unit in 1,000 mls @ 60 mls/hr IV TITRATE STELLA; Protocol Last Admin: 09/24/20 09:26 Dose: 60 mls/hr Documented by: Metformin HCl (Metformin 500 Mg Tab) 500 mg PO BIDMEALS [facility] Last Admin: 09/24/20 07:32 Dose: 500 mg Documented by: Nalbuphine HCl (Nalbuphine 10 Mg/1 Ml Vial) 10 mg IVPUSH Q2H PRN PRN Reason: Pain Sertraline HCl (Sertraline 50 Mg Tab) 50 mg PO BEDTIME [facility] Last Admin: 09/23/20 21:09 Dose: 50 mg Documented by: Sodium Chloride (Sodium Chloride 0.9% 10 Ml Syringe) 10 ml FLUSH ASDIRECTED PRN PRN Reason: Keep Vein Open - Exam General: Reports: Alert, Oriented HEENT: Reports: Pupils Equal, Pupils Reactive, EOMI, Mucous Membr. Moist/[place] Neck: Reports: Supple Lungs: Reports: Clear to Auscultation, Normal Respiratory Effort Cardiovascular: Reports: Regular Rate, Regular Rhythm GI/Abdominal Exam: Normal Bowel Sounds, Soft, Non-Tender, No Organomegaly, No Distention, No Abnormal Bruit, No Mass, Pelvis Stable Rectal (Female) Exam: Normal Exam, Normal Rectal Tone Back Exam: Reports: Normal Inspection, Full Range of Motion Extremities: Normal Inspection, Normal Range of Motion, Non-Tender, No Pedal Edema, Normal Capillary Refill Skin: Reports: Warm, Dry, Intact Wound/Incisions: Reports: Healing Well Neurological: Reports: No New Focal Deficit Psy/Mental Status: Reports: Alert, Normal Affect, Normal Mood
== END 2020-09-25 19:04 | disposition home or self-care (01) | DRG 560 ==
LOC: JD.OBCHECK 16:58 → JD.OB 17:08 → JD.OBCHECK 19:40 → OBSVTOIN 09-24 16:16 → JD.OB 09-24 16:17
PROVIDERS: ADMIT Obstetrics & Gynecology; ATTEND Obstetrics & Gynecology
PROC: 10E0XZZ Delivery of Products of Conception, External Approach (ICD-10-PCS; principal; 2020-09-24)
PROC: 10907ZC Drainage of Amniotic Fluid, Therapeutic from Products of Conception, Via Natural or Artificial Opening (ICD-10-PCS; 2020-09-24)
PROC: 3E033VJ Introduction of Other Hormone into Peripheral Vein, Percutaneous Approach (ICD-10-PCS; 2020-09-24)
PROC: 10H07YZ Insertion of Other Device into Products of Conception, Via Natural or Artificial Opening (ICD-10-PCS; 2020-09-24)
PROC: 3E0R3BZ Introduction of Anesthetic Agent into Spinal Canal, Percutaneous Approach (ICD-10-PCS; 2020-09-24)
PROC: 00HU33Z Insertion of Infusion Device into Spinal Canal, Percutaneous Approach (ICD-10-PCS; 2020-09-24)
DX: O13.4 Gestational [pregnancy-induced] hypertension without significant proteinuria, complicating childbirth (principal); Z3A.37 37 weeks gestation of pregnancy; Z37.0 Single live birth; O99.344 Other mental disorders complicating childbirth; F41.9 Anxiety disorder, unspecified; F32.9 Major depressive disorder, single episode, unspecified; Z87.891 Personal history of nicotine dependence; Z20.822 Contact with and (suspected) exposure to COVID-19
CPT/HCPCS: 36415; 51702; 59025; 59409; 80053; 82570; 83615; 84156; 85025; 86592; A9270-GY; J2590; J3010; J3490; J7120; U0002